=== PATIENT | female | born 1970 | race Caucasian/White ===

== ENCOUNTER 2021-08-14 06:58 | Emergency (ER) | payer OTHER ==
[~2021-08-14 06:58] MED LIST: IBUPROFEN600 MG PO; OMNICEF 300 MG300 MG PO; POLYCIN EYE OI3.5 GM OS; PREDNISONE 50 M50 MG PO; PROAIR DIGIHAL90 MCG INH; PROTONIX20 MG PO; Voltaren Gel 1% TOP; ZITHROMAX250 MG PO
[2021-08-14] MEDS ORDERED: CEPHALEXIN500 M1 PO (07:41)
== END 2021-08-14 07:58 | disposition home or self-care (01) ==
LOC: ER1 06:58
DX: L02.01 Cutaneous abscess of face (principal); I10 Essential (primary) hypertension; F17.210 Nicotine dependence, cigarettes, uncomplicated
CPT/HCPCS: 99283